=== PATIENT | female | born 1970 | race Caucasian/White ===

== ENCOUNTER 2016-09-24 11:57 | Inpatient (IN) | payer OTHER ==
--- NOTE | ~2016-09-24 | CO ---
Unit #: [id number] #: [id number] Patient: DELANEY CHRISTIANSON [id number] [address] [place], [place] [address] [id number] MR#: [id number] NAME: DELANEY CHRISTIANSON ROOM: 321 Age: 46 Sex: F Admission Date: 09/24/2016 : 1970 Attending Physician: Marcia Kelly M.D. Primary Care Physician: Jaya Monroe Jr., M.D. Consultation Date: 09/27/2016 CONSULTATION REPORT REASON FOR CONSULTATION Sepsis. HISTORY OF PRESENT ILLNESS This is a 46-year-old white female, who is currently fully awake, alert, and oriented to time, space, and person. Does not look sick at all. She was initially hospitalized 3 days earlier with acute confusional state and mental status changes. Her drug screen was positive for benzodiazepine. In the ER, she was thought to have UTI and was started on levofloxacin. Yesterday, she developed some tachycardia, low-grade fever and white count for which sepsis was suspected and vancomycin was added. ID was consulted for further evaluation. The patient is currently stable. She is wide awake and alert. Does not have any fever, chills, dysuria, frequency, urgency, cough, sputum production, abdominal pain, or mental status changes at all. She does not know why she became confused, it is quite possible that some drugs were involved, although I do not have any definitive history pointing towards the possibility. PAST MEDICAL HISTORY Hypertension, depression, anxiety, allergies, tobacco abuse, previous CVA. PAST SURGICAL HISTORY Tubal ligation, ectopic , and section. SOCIAL HISTORY She is . She smoke cigarettes. Denies alcohol or drug abuse. FAMILY HISTORY Negative. ALLERGIES Cephalosporin. HOME MEDICATIONS Singulair, lisinopril, potassium, Cymbalta, thiamine, Wellbutrin, Pepcid, losartan, melatonin, famotidine, folic acid, venlafaxine, vitamin D, Ativan, metoprolol, mirtazapine, Neurontin, trazodone, Coumadin, Vimpat. In the hospital, she is on vancomycin and Levaquin as far as antibiotics are concerned. SYSTEMIC REVIEW She is fully awake, alert, and oriented at this time and she was eating when I saw her. She has a little headache, focal neurologic symptoms, cough, sore throat, abdominal pain, dysuria, frequency, urgency, hematuria. Unit #: [id number] #: [id number] Patient: DELANEY CHRISTIANSON PHYSICAL EXAMINATION GENERAL: Reveals a young white female, who is awake and alert, in no acute distress. She is fully conscious and oriented to time, place, and person. VITAL SIGNS: Temperature is 97.3, heart rate is 90, respirations 18, blood pressure 130/70. HEENT: Unremarkable. LUNGS: Clear to percussion and auscultation. HEART: Sounds normal. There are no murmurs. ABDOMEN: Soft and nontender without organomegaly or ascites. Bowel sounds normal. NEUROLOGIC: Nonfocal. DIAGNOSTIC STUDIES LABORATORY RESULTS: Urine culture, gram-negative kaz identification is pending. Blood cultures 1out of 2 sets is positive for coag-negative Staph which is most likely a contaminant. White count on admission was 12.6, hemoglobin 11.8, platelets 295. Lactic acid 1.9. Sodium 138, potassium 3.4, chloride 103, CO2 of 28, BUN 17, creatinine 0.9. Liver function tests are normal. Urinalysis shows 50 to 100 wbc's, and 4+ bacteria, 2+ leukocyte esterase. Urine drug screen, benzodiazepine. Her white count today is 5.8. Lactic acid is 0.8. IMAGING STUDIES: Chest x-ray, negative. Head CT, no acute abnormality. There is an area of chronic encephalomalacia in the right cerebral hemisphere due to previous ischemic events. IMPRESSION Main issue appears to be confusion and mental status changes of unclear etiology, which has completely resolved. The patient does not appear septic, although she could have low-grade lower urinary tract infection or asymptomatic bacteriuria, but overt sepsis or SIRS is not evident on my physical examination and review of the case. RECOMMENDATIONS We will discontinue vancomycin as one of the two coag-negative Staph in the blood is most likely skin contaminant. We will continue Levaquin empirically for few days for possible urinary tract infection. Further recommendation will follow. Dictated by... Anu Granda/renetta TD: 09/30/2016 07:30 JOB #: [id number] Unit #: [id number] #: [id number] Patient: LISAEVERARDODELANEY G CONSULTATION REPORT Page 1 of 1 X Chapito Swift MD CONSULTATION REPORT
--- NOTE | ~2016-09-24 | CT71 ---
[facility] A Service of [facility] RADIOLOGY TEXT RESULTS PATIENT: DELANEY CHRISTIANSON LOCATION: C3A 321-01 : [birth year] UNIT #: [id number] AGE: [address]: Bobby Mcguire MD SEX: F ORDER DR: [id number] [facility] [address] [place], [place] [address] [id number] MR#: [id number] Acc #: [id number] NAME: DELANEY CHRISTIANSON : 1970 SEX: F STUDY DATE/TIME: 09/24/2016 13:22 UNIT: [facility] ROOM: STUDY DESCRIPTION: CT Head Wo Contrast Attending Physician: Obinna Palacio D.O. Ordering Physician: Obinna Palacio D.O. Primary Care Physician: Jaya Monroe Jr., M.D. MEDICAL IMAGING REPORT This report is preliminary unless electronic signature is present < HISTORY The history is altered mental status. Hypotensive. Increased confusion since yesterday. Best positioning possible patient in position. The CT exam was performed with one or more of the following radiation dose reduction techniques: automatic exposure control, adjustment of mA and/or kV according to patient size, and iterative reconstruction. CT head performed skull base through vertex without intravenous contrast. Comparison 07/03/2016. No acute brainstem abnormality. Cerebellum shows no acute abnormality. The cerebral hemispheres show stable chronic infarct right occipital lobe, stable chronic infarct posterior right parietal lobe, stable chronic infarct anterior right frontal lobe, stable chronic infarct anteromedial right frontal lobe. Associated encephalomalacic change in this regions. Outside of these areas the fu matter-white matter differentiation is intact. There are no findings of acute cortical ischemia. There is no hemorrhage. The midline structures are nondisplaced. The ventricles, cisterns and sulci show mild generalized enlargement greater on the right than the left secondary to ex vacuo change. No intra or extraaxial mass effect. There are cavernous carotid arterial calcifications. The intraorbital soft tissues are unremarkable. The visualized paranasal sinuses and mastoid air cells are clear. There is no fracture. IMPRESSION 1. No acute abnormality is seen in the brain. If the patient has ongoing neurologic symptoms, consider follow up imaging. 2. Areas of chronic encephalomalacic change in the right cerebral hemisphere as described above. These are felt to reflect multifocal prior ischemic infarcts and are unchanged from June 2016. [facility] A Service of [facility] RADIOLOGY TEXT RESULTS PATIENT: DELANEY CHRISTIANSON LOCATION: C3A 321-01 : [birth year] UNIT #: [id number] AGE: [address]: Bobby Mcguire MD SEX: F ORDER DR: 3. Mild generalized atrophy more pronounced in the right cerebral hemisphere secondary to ex vacuo change. 4. Vascular calcifications. Dictated by... Saurabh Lorenzo M.D. THIS IS AN ELECTRONICALLY VERIFIED REPORT Saurabh Lorenzo M.D. at 09/24/2016 10:37 PM Sharron TD: 09/24/2016 14:48 JOB #: [id number] MEDICAL IMAGING REPORT Page 1 of 1 COPY
--- NOTE | ~2016-09-24 | EKG ---
PATIENT: DELANEY CHRISTIANSON UNIT #: [id number] Ventricular Rate: 90 BPM Atrial Rate: 90 BPM P-R Interval: 202 ms QRS Duration: 106 ms Q-T Interval: 372 ms QTC Calculation(Bezet): 455 ms P [place]: 72 degrees Calculated R [place]: 45 degrees Calculated T [place]: 43 degrees Diagnosis Line: Normal sinus rhythm Diagnosis Line: Normal ECG Diagnosis Line: When compared with ECG of 24-SEP-2016 12:39, Diagnosis Line: (unconfirmed) Diagnosis Line: No significant change was found Diagnosis Line: Confirmed by ALEM RIOS MD ([id number]) on Diagnosis Line: 09/25/2016 10:38:35 AM INTERPRETING MD: BLANCA SORTO
--- NOTE | ~2016-09-24 | CR72 ---
[facility] A Service of [facility] RADIOLOGY TEXT RESULTS PATIENT: DELANEY CHRISTIANSON LOCATION: [facility] : [birth year] UNIT #: [id number] AGE: [address]: Obinna Palacio DO SEX: F ORDER DR: [id number] [facility] [address] [place], [place] [address] [id number] E MR#: [id number] Acc #: [id number] NAME: DELANEY CHRISTIANSON : 1970 SEX: F STUDY DATE/TIME: 09/24/2016 12:56 UNIT: [facility] ROOM: STUDY DESCRIPTION: CR Chest Single View Portable Attending Physician: Obinna Palacio D.O. Ordering Physician: Obinna Palacio D.O. Primary Care Physician: Jaya Monroe Jr., M.D. MEDICAL IMAGING REPORT This report is preliminary unless electronic signature is present EXAM Portable chest HISTORY Shortness of breath, weakness and hypotension, onset today. TECHNIQUE Single AP view of the chest was obtained and compared with 07/03/2016 FINDINGS A single AP portable view of the chest shows both lungs to be clear. The heart is normal in size. The mediastinal contour is normal. No significant bone abnormalities are seen. IMPRESSION Normal portable chest. Dictated by... Karlo Millan M.D. THIS IS AN ELECTRONICALLY VERIFIED REPORT Karlo Millan M.D. at 09/24/2016 4:42 PM RLF/chicar TD: 09/24/2016 13:31 JOB #: [id number] MEDICAL IMAGING REPORT Page 1 of 1 COPY
--- NOTE | ~2016-09-24 | HP ---
Unit #: [id number] #: [id number] Patient: DELANEY CHRISTIANSON [id number] [address] [place], [place] [address] [id number] MR#: [id number] NAME: DELANEY CHRISTIANSON ROOM: Age: 46 Sex: F Admission Date: 09/24/2016 : 1970 Attending Physician: Obinna Palacio D.O. Primary Care Physician: Jaya Monroe Jr., M.D. HISTORY AND PHYSICAL CHIEF COMPLAINT Mental status changes HISTORY OF PRESENT ILLNESS The patient is a 46-year-old female with a history depression, anxiety, who presents to [facility] Emergency Department with complaints of mental status changes. History is provided per emergency room physician as the patient is unable to provide me any history. She is very confused. Apparently the patient was brought in by her secondary to this confused behavior. Workup in the emergency department reveals a probable urinary tract infection. PAST MEDICAL HISTORY Gleaned from prior medical records. This includes: 1. Hypertension 2. Depression 3. Anxiety 4. Allergies 5. Tobacco abuse 6. Cerebrovascular accident 7. Atheroma PAST SURGICAL HISTORY Tubal ligation, history of ectopic status post surgery and a sections 2. SOCIAL HISTORY . There is a reported history of smoking. FAMILY HISTORY Unable to obtain. ALLERGIES Cephalosporin HOME MEDICATIONS List provided by EMS is 1. Singulair 2. Lisinopril 3. Potassium 4. Cymbalta 5. Thiamine 6. Wellbutrin 7. (1) Unit #: [id number] #: [id number] Patient: DELANEY CHRISTIANSON 8. Pepcid 9. [place] 10. Melatonin 11. Famotadine 12. Folic acid 13. Venlafaxine 14. Vitamin D 15. Ativan 16. Metoprolol 17. Mirtazapine 18. Neurontin 19. Trazodone 20. Coumadin 21. Vimpat REVIEW OF SYSTEMS Unable to obtain. PHYSICAL EXAMINATION VITAL SIGNS: Temperature 97.3, pulse 84, blood pressure 94/78. GENERAL: A 46-year-old female in no acute distress, appears stated age. HEENT: Pupils equally round. Extraocular movements are intact. Mucous membranes dry. NECK: Supple. No jugular venous distension. No lymphadenopathy. CARDIAC: Regular rate and rhythm. No murmurs, gallops or rubs. LUNGS: Clear to auscultation bilaterally. ABDOMEN: Nontender, nondistended. Positive bowel sounds. EXTREMITIES: No clubbing, cyanosis or edema. Warm and dry. PSYCHIATRIC: Alert and oriented x1. Affect is flat. NEUROLOGIC: Cranial nerves II through XII are intact grossly. The patient moves all extremities equal and with purpose. SKIN: No rashes, bruises, or ulcers. MUSCULOSKELETAL: No muscle or joint pain. No muscle or joint swelling. DIAGNOSIS DATA Laboratory: Potassium 3.4, otherwise chemistries are normal. INR is 4.4. White count 12.6. Toxicology screen positive for benzodiazepines. Urinalysis shows 2+ leukocyte esterase, 50-100 whites and 4+ bacteria with no squamous cells. Imaging: Chest x-ray is read as normal. ASSESSEMENT AND PLAN 1. Toxic metabolic encephalopathy, likely secondary to the patient's urinary tract infection. I have started the patient on Zosyn, given cephalosporin allergy. 2. Urinary tract infection. The patient has had Escherichia coli and enterococcal urinary tract infections this year. This also includes Vancomycin resistant Enterococcus. Zosyn covers both of those particular isolates. 3. Hypertension. Hold her home medications right now; her blood pressure is in the 90-100 systolic range. 4. Prophylaxis. The patient was started on Lovenox. Unit #: [id number] #: [id number] Patient: DELANEY CHRISTIANSON Dictated by Bobby Mcguire M.D. CAM/lillie TD: 09/24/2016 15:20 JOB #: [id number] HISTORY AND PHYSICAL Page 1 of 1 X Bobby Mcguire MD X HISTORY AND PHYSICAL
--- NOTE | ~2016-09-24 | DS ---
Unit #: [id number] #: [id number] Patient: ANITRA GREGORIO [id number] [address] [address] [id number] MR#: [id number] NAME: ANITRA GREGORIO. ROOM: 321 Age: 46 Sex: F Admission Date: 09/24/2016 : 1970 Discharge Date: 09/30/2016 Attending Physician: Marcia Kelly M.D. Primary Care Physician: Jaya Monroe Jr., M.D. DISCHARGE SUMMARY FINAL DIAGNOSES 1. Altered mental status and toxic metabolic encephalopathy which has resolved. 2. Escherichia coli urinary tract infection, on antibiotics. 3. History of cerebrovascular accident with left hemiparesis. 4. Diabetes mellitus, type 2. 5. Hypertension. 6. Seizure disorder. 7. Anticoagulation therapy. DISCHARGE MEDICATIONS Levaquin 500 mg p.o. daily for 3 more days. Continue rest of the home medications. DIAGNOSTIC STUDIES LABORATORY RESULTS: Lab workup upon discharge; PT 36.8, INR 3.4. WBC 8.4, hemoglobin 9.7, hematocrit 29.8, and platelet count of 293. Urine culture is Klebsiella oxytoca more than 100,000 colonies, sensitive to Levaquin. Sodium 143, potassium 3.7, chloride 109, BUN less than 5, creatinine 0.9. Blood culture, one of the cultures grew Staph species coag negative. This was skin contaminant. Lactic acid 0.8. Urine drug screen on admission showed positive for benzodiazepine. IMAGING STUDIES: CT scan of the head was done in the ER, which showed no acute abnormality seen, areas of chronic encephalomalacic changes in the right cerebellar hemisphere and multifocal ischemic infarct. HOSPITAL COURSE Ms. Anitra Gregorio is 46-year-old female, who was admitted to the hospital by Dr. Mcguire and later on changed to our services, was admitted with mental status changes. The patient was diagnosed with toxic metabolic encephalopathy, most likely secondary to the patient's urinary tract infection. The patient was started on antibiotics. Infectious Disease was consulted. The patient is doing much better at this time. She is being discharged home in stable condition. The patient is afebrile and has no leukocytosis. EXAMINATION ON DISCHARGE VITAL SIGNS: Blood pressure 123/75, respiratory rate 16, pulse is 73, temperature 98.2, oxygen saturation is 99%. CHEST: Fair air entry. CVS: S1 and S2 positive. Regular rhythm. Unit #: [id number] #: [id number] Patient: ANITRA GREGORIO DISCHARGE INSTRUCTIONS 1. The patient is being discharged home in stable condition. 2. Medication as per med rec. 3. Prescription for Levaquin has been written. 4. Follow up primary care provider in 1 week. 5. CBC and BMP in 1 week. Dictated by... Marcia Kelly M.D. GM/renetta TD: 10/04/2016 03:19 JOB #: [id number] DISCHARGE SUMMARY Page 1 of 1 X Marcia Kelly MD X DISCHARGE SUMMARY
--- NOTE | ~2016-09-24 | A ---
[facility] Nutrition Therapy DATE: 09/25/16 Patient: DELANEY CHRISTIANSON Physician: MORCAR Address: [address] Room/Bed: [address] [place] [address], Zip: [place] [address] Admit Date: 09/24/16 Date of : [birth year] Height: Weight: 128 58.3 NUTRITIONAL ASSESSMENT: REASON: 3 nutritional risk points re: 20# weight loss 46 y/o female admitted for change in mental status, ?UTI PMH: CVA, HTN, depression, anxiety, smoker Anthropometrics: ht: 5'8" wt: 128# (58 kg) BMI 19 Labs: K+ 3.4, Alb 3.4, Mg++ 1.3 Meds: coumadin, pepcid, lipitor, remeron, levaquin, ativan I/O & Bowel function: no data/2. BM 09/22 Skin Integrity: sore- BUE. No edema. Diet: Regular Assessment: Chart reviewed, events noted. Seeing pt for 3 nutritional risk points re: 20# weight loss. Pt's brought the pt to the ER yesterday 2' a change in mental status. The pt did suffer from a CVA in April 2016. RD internet network specialist spoke to pt at bedside. Pt reports that she has had no weight loss recently, contrary to the report of a 20# weight loss in [facility]. Pt confirmed current weight of 128# as her normal weight. No family in room to confirm. Pt says she has a good appetite and has been eating better. RD internet network specialist offered to order supplements for pt to ensure adequate intake, but pt refused. RD internet network specialist spoke with pt's RN, who also reports that the pt has been eating well and is able to swallow pills whole. Please consult RD if dietary needs for this pt change. Dx: Predicted unintentional weight loss r/t altered mental status, PMH AEB possible 20# weight loss noted in [facility]. Intervention: 1. Regular diet Monitoring, Evaluation and Goals: 1. Oral intake; consume/tolerate >50% of all meals 2. Weight; promote healthy weight maintenance 3. Labs; improve electroytes Monitor: -Daily intake [facility] Nutrition Therapy DATE: 09/25/16 Patient: DELANEY CHRISTIANSON Physician: MARCELLE Address: [address] Room/Bed: [address] [place] [address], Zip: [place] [address] Admit Date: 09/24/16 Date of : [birth year] Height: Weight: 128 58.3 -Swallowing/chewing difficulties -Weights Recommendations: 1. Continue regular diet and closely monitor pt's intake of each meal. Pt may have Ensure BID if desired. 2. Consult RD for further nutritional needs. RD will f/u per protocol as pt is at mild nutritional risk. Respectfully, MARKELL VANEGAS, pharmacist intern Chayo Lea, JEN, LD [employer] [facility] cc: client file
[~2016-09-24 11:57] MED LIST: ASPIRINEC PO; DULOXETINE HCL60 MG PO; FLEXERIL PO; IBUPROFEN PO; KCL PO; LISINOPRIL20 MG PO; LOVASTATIN20 M2 PO; ORTHO MICRONO0.35 MG PO; PEPCID40 MG PO; POTASSIUM CHLO10 MEQ PO; SINGULAIR PO; THIAMINE HCL100 M1 PO; VERTICALM25 MG PO; WELLBUTRIN PO; ZITHROMAX PO
[2016-09-24 13:15] LABS: BASOPHIL# 0.1 X10e3 (0-0.3); BASOPHIL% 0.4 % (0-2.5); EOSINOPHIL% 0.3 % (0.0-7.0); HEMOGLOBIN 11.8 gm/dL (12.0-16.0); LYMPHOCYTE# 2.5 X10e3 (1.0-3.5); LYMPHOCYTE% 19.7 % (17.0-45.0); MEAN CELL VOLUME 89.5 FL (83-96); MEAN CORPUSCULAR HEMOGLOBIN 28.5 PG (28-34); MEAN CORPUSCULAR HGB CONC 31.9 g/dL (30-36); MEAN PLATELET VOLUME 8.4 FL (6.5-11.5); MONOCYTE# 0.7 X10e3 (0-1.0); MONOCYTE% 5.7 % (3.0-12.0); NEUTROPHIL# 9.3 X10e3 (1.5-7.1); NEUTROPHIL% 73.9 % (40-75); PLATELET COUNT 295 X10e3 (140-420); RED BLOOD COUNT 4.13 X10e (3.90-5.30); RED CELL DISTRIBUTION WIDTH 14.7 % (11.0-15.5); WHITE BLOOD COUNT 12.6 X10e3 (4.0-10.5)
[2016-09-24 13:20] LABS: DIFF IND NO
[2016-09-24 13:31] LABS: INR 4.4; PARTIAL THROMBOPLASTIN TIME 52.5 SECONDS (23.5-31.3); PROTHROMBIN TIME (PATIENT) 47.8 SECONDS (10.0-11.7)
[2016-09-24 13:42] LABS: ACETAMINOPHEN <10 ug/mL; ALBUMIN SERUM 3.4 g/dL (3.5-5.0); ALCOHOL BLOOD <5 mg/dL ([, 0]); ALKALINE PHOSPHATASE 61 U/L (32-92); ALT (SGPT) 10 U/L (10-40); AST (SGOT) 12 U/L (10-42); BILIRUBIN, DIRECT 0.2 mg/dL (0.0-0.2); BILIRUBIN,INDIRECT 0.4 mg/dL (0.0-0.9); BILIRUBIN,TOTAL 0.6 mg/dL (0.2-2.0); BLOOD UREA NITROGEN 17 mg/dL (9-23); BUN/CREATININE RATIO 24.28; CALCIUM SERUM 9.8 mg/dL (8.4-10.2); CARBON DIOXIDE 28 mmol/L (22-31); CHLORIDE 103 mmol/L (100-111); CREATININE SERUM 0.7 mg/dL (0.6-1.4); GLOM FILT RATE Estimated 102.5 mL/min (>60); GLUCOSE FASTING 127 mg/dL (70-110); POTASSIUM 3.4 mmol/L (3.5-5.1); PROTEIN TOTAL SERUM 7.6 g/dL (6.0-8.3); SALICYLATE <4.0 mg/dL; SODIUM 138 mmol/L (135-145)
[2016-09-24 13:58] LABS: URINE SOURCE CLEAN CATCH
[2016-09-24 14:02] LABS: URINE APPEARANCE CLOUDY; URINE BILIRUBIN NEG (NEG); URINE BLOOD 1+ (NEG); URINE COLOR DK YELLOW; URINE GLUCOSE NEG (NEG); URINE KETONE NEG (NEG); URINE LEUKOCYTE ESTERASE 2+ (NEG); URINE NITRATE POS (NEG); URINE PH 5.5 (5-8); URINE PROTEIN TRACE (NEG); URINE SPECIFIC GRAVITY 1.021 (1.003-1.035)
[2016-09-24 14:10] LABS: CULTURE INDICATED? YES; URBCS1 AUWI 0-2 /[HPF] (0-2); URINE BACTERIA AUWI 4+ (NEGATIVE); URINE SQUAMOUS EPITHELIAL CELL NONE SEEN /[HPF]; UWBCS1 AUWI 50-100 (0-5)
[2016-09-24 14:16] LABS: U HYALINE CASTS AUWI 0-2 /[LPF]
[2016-09-24] MEDS ORDERED: TYLENOL325 M1 PO ×2 (14:18→15:16)
[2016-09-24] MEDS ORDERED: ZOLOFT50 MG PO (14:19)
[2016-09-24] MEDS ORDERED: ZOFRAN PO (14:19)
[2016-09-24] MEDS ORDERED: REMERON PO ×2 (14:19→15:16)
[2016-09-24] MEDS ORDERED: SPECTAZOLE15 GM TOP (14:20)
[2016-09-24] MEDS ORDERED: LOPRESSOR PO ×2 (14:20→15:15)
[2016-09-24] MEDS ORDERED: LORAZEPAM1 MG PO (14:20)
[2016-09-24] MEDS ORDERED: ALTOPREV40 MG PO ×2 (14:20→15:17)
[2016-09-24] MEDS ORDERED: PROTONIX PO (14:21)
[2016-09-24] MEDS ORDERED: ULTRAM PO (14:21)
[2016-09-24] MEDS ORDERED: FOLIC ACID1 MG PO ×2 (14:21→15:17)
[2016-09-24] MEDS ORDERED: SINGULAIR PO ×2 (14:21→15:16)
[2016-09-24] MEDS ORDERED: LISINOPRIL PO ×2 (14:21→15:14)
[2016-09-24] MEDS ORDERED: VIMPAT100 MG PO ×2 (14:22→15:14)
[2016-09-24] MEDS ORDERED: THIAMINE HCL100 M1 PO ×2 (14:22→15:18)
[2016-09-24 14:41] LABS: AMPHETAMINE NEG (NEG); BARBITURATES NEG (NEG); BENZODIAZEPINES POS (NEG); COCAINE NEG (NEG); MARIJUANA NEG (NEG); OPIATES NEG (NEG); TRICYCLIC ANTIDEPRESSANTS NEG (NEG); U METHADONE NEG (NEG)
[2016-09-24] MEDS ORDERED: ACID REDUCER20 MG PO (15:14)
[2016-09-24] MEDS ORDERED: NEURONTIN100 MG PO (15:14)
[2016-09-24] MEDS ORDERED: PATIENT'S PHARMACY (15:14)
[2016-09-24] MEDS ORDERED: KCL PO (15:15)
[2016-09-24] MEDS ORDERED: ATIVAN PO (15:15)
[2016-09-24] MEDS ORDERED: DESYREL50 MG PO (15:15)
[2016-09-24] MEDS ORDERED: SENNA8.6 M1 PO (15:15)
[2016-09-24] MEDS ORDERED: EFFEXOR PO (15:15)
[2016-09-24] MEDS ORDERED: VITAMIN D250000 UNIT PO (15:16)
[2016-09-24] MEDS ORDERED: COUMADIN PO (15:17)
[2016-09-24] MEDS ORDERED: RISPERIDONE PO (15:18)
[2016-09-25 09:16] LABS: HEMATOCRIT 32.6 % (35.0-45.0); HEMOGLOBIN 10.6 gm/dL (12.0-16.0); MEAN CELL VOLUME 88.9 FL (83-96); MEAN CORPUSCULAR HEMOGLOBIN 28.9 PG (28-34); MEAN CORPUSCULAR HGB CONC 32.5 g/dL (30-36); MEAN PLATELET VOLUME 7.6 FL (6.5-11.5); RED BLOOD COUNT 3.67 X10e (3.90-5.30); RED CELL DISTRIBUTION WIDTH 14.6 % (11.0-15.5); WHITE BLOOD COUNT 7.8 X10e3 (4.0-10.5)
[2016-09-25 09:44] LABS: BUN/CREATININE RATIO 23.33; CALCIUM SERUM 8.8 mg/dL (8.4-10.2); CREATININE SERUM 0.6 mg/dL (0.6-1.4); GLOM FILT RATE Estimated 107.8 mL/min (>60); POTASSIUM 3.4 mmol/L (3.5-5.1)
[2016-09-25 20:04] LABS: INR 3.7; PROTHROMBIN TIME (PATIENT) 39.8 SECONDS (10.0-11.7)
[2016-09-26 05:20] LABS: HEMATOCRIT 29.4 % (35.0-45.0); HEMOGLOBIN 9.5 gm/dL (12.0-16.0); MEAN CELL VOLUME 90.4 FL (83-96); MEAN CORPUSCULAR HEMOGLOBIN 29.3 PG (28-34); MEAN CORPUSCULAR HGB CONC 32.4 g/dL (30-36); MEAN PLATELET VOLUME 8.2 FL (6.5-11.5); RED BLOOD COUNT 3.25 X10e (3.90-5.30); RED CELL DISTRIBUTION WIDTH 14.2 % (11.0-15.5); WHITE BLOOD COUNT 5.8 X10e3 (4.0-10.5)
[2016-09-26 06:05] LABS: INR 2.6; PROTHROMBIN TIME (PATIENT) 28.6 SECONDS (10.0-11.7)
[2016-09-26 07:04] LABS: BUN/CREATININE RATIO 14.28; CALCIUM SERUM 8.6 mg/dL (8.4-10.2); CREATININE SERUM 0.7 mg/dL (0.6-1.4); GLOM FILT RATE Estimated 102.5 mL/min (>60); MAGNESIUM 1.5 mg/dL (1.6-3.0); POTASSIUM 3.8 mmol/L (3.5-5.1)
[2016-09-27 05:12] LABS: HEMATOCRIT 26.6 % (35.0-45.0); HEMOGLOBIN 8.7 gm/dL (12.0-16.0); MEAN CELL VOLUME 89.9 FL (83-96); MEAN CORPUSCULAR HEMOGLOBIN 29.4 PG (28-34); MEAN CORPUSCULAR HGB CONC 32.7 g/dL (30-36); MEAN PLATELET VOLUME 7.7 FL (6.5-11.5); RED BLOOD COUNT 2.95 X10e (3.90-5.30); RED CELL DISTRIBUTION WIDTH 14.5 % (11.0-15.5); WHITE BLOOD COUNT 5.8 X10e3 (4.0-10.5)
[2016-09-27 05:24] LABS: INR 1.7; PROTHROMBIN TIME (PATIENT) 18.4 SECONDS (10.0-11.7)
[2016-09-27 06:10] LABS: BLOOD UREA NITROGEN 5 mg/dL (9-23); BUN/CREATININE RATIO 7.14; CALCIUM SERUM 8.4 mg/dL (8.4-10.2); CARBON DIOXIDE 23 mmol/L (22-31); CHLORIDE 112 mmol/L (100-111); CREATININE SERUM 0.7 mg/dL (0.6-1.4); GLOM FILT RATE Estimated 102.5 mL/min (>60); GLUCOSE FASTING 71 mg/dL (70-110); SODIUM 141 mmol/L (135-145)
[2016-09-27 06:22] LABS: PROCALCITONIN <0.05 NG/ML
[2016-09-28 07:06] LABS: INR 1.5; PROTHROMBIN TIME (PATIENT) 16.8 SECONDS (10.0-11.7)
[2016-09-29 06:32] LABS: INR 3.1; PROTHROMBIN TIME (PATIENT) 34.2 SECONDS (10.0-11.7)
[2016-09-29 06:44] LABS: BLOOD UREA NITROGEN <5 mg/dL (9-23); BUN/CREATININE RATIO 5.55; CALCIUM SERUM 8.9 mg/dL (8.4-10.2); CARBON DIOXIDE 27 mmol/L (22-31); CHLORIDE 109 mmol/L (100-111); CREATININE SERUM 0.9 mg/dL (0.6-1.4); GLOM FILT RATE Estimated 75.7 mL/min (>60); GLUCOSE FASTING 75 mg/dL (70-110); POTASSIUM 3.7 mmol/L (3.5-5.1); SODIUM 143 mmol/L (135-145)
[2016-09-30 05:23] LABS: HEMATOCRIT 29.8 % (35.0-45.0); HEMOGLOBIN 9.7 gm/dL (12.0-16.0); MEAN CELL VOLUME 88.7 FL (83-96); MEAN CORPUSCULAR HEMOGLOBIN 28.9 PG (28-34); MEAN CORPUSCULAR HGB CONC 32.6 g/dL (30-36); MEAN PLATELET VOLUME 6.8 FL (6.5-11.5); RED BLOOD COUNT 3.36 X10e (3.90-5.30); RED CELL DISTRIBUTION WIDTH 14.1 % (11.0-15.5); WHITE BLOOD COUNT 8.4 X10e3 (4.0-10.5)
[2016-09-30 05:43] LABS: INR 3.4; PROTHROMBIN TIME (PATIENT) 36.8 SECONDS (10.0-11.7)
[2016-09-30] MEDS ORDERED: KCL PO (18:10)
[2016-09-30] MEDS ORDERED: (NONE)1 CA1 PO (18:13)
[2016-09-30] MEDS ORDERED: LEVAQUIN PO (18:17)
== END 2016-09-30 19:23 | disposition home or self-care (01) | DRG 689 ==
LOC: CED 11:57 → C3A PCU 15:11 → CEDOF 15:11 → CED 15:38 → CEDOF 18:25 → C3A PCU 18:25
PROVIDERS: Emergency Medicine; Hospitalist; Internal Medicine; Physician Assistant Medical
DX: N39.0 Urinary tract infection, site not specified (principal); G92 Toxic encephalopathy; I69.354 Hemiplegia and hemiparesis following cerebral infarction affecting left non-dominant side; E44.1 Mild protein-calorie malnutrition; B96.20 Unspecified Escherichia coli [E. coli] as the cause of diseases classified elsewhere; I10 Essential (primary) hypertension; E11.9 Type 2 diabetes mellitus without complications; F32.9 Major depressive disorder, single episode, unspecified; Z68.1 Body mass index [BMI] 19.9 or less, adult; Z87.891 Personal history of nicotine dependence; G40.909 Epilepsy, unspecified, not intractable, without status epilepticus; F41.9 Anxiety disorder, unspecified; Z98.51 Tubal ligation status; Z88.1 Allergy status to other antibiotic agents
CPT/HCPCS: 36415; 51701; 70450; 71010; 80048; 80076; 80202; 80307; 81003; 82140; 82308; 82947; 83605; 83735; 84132; 84703; 85025; 85027; 85610; 85730; 87040; 87086; 87088; 87186; 93005; 97163; 97167; 99285; G0480; G8978-GP; G8979-GP; G8980-GP; G8987-GO; G8988-GO; G8989-GO; J1650; J1956; J3370; J3475

== ENCOUNTER 2016-10-22 17:32 | Inpatient (IN) | payer OTHER ==
[~2016-10-22] VITALS: Ht 162.6 cm; Wt 57.6 kg
--- NOTE | ~2016-10-22 | CO ---
Unit #: [id number] #: [id number] Patient: ANITRA GREGORIO [id number] [facility] [address] [place], [place] [address] [id number] I MR#: [id number] NAME: ANITRA GREGORIO ROOM: 229 Age: 46 Sex: F Admission Date: 10/22/2016 : 1970 Attending Physician: Marcia Kelly M.D. Primary Care Physician: Jaya Monroe Jr., M.D. Consultation Date: 10/27/2016 CONSULTATION REPORT REASON FOR CONSULTATION Followup. DISCUSSION Ms. Anitra Gregorio is a 46-year-old white female seen in room 229, bed 1 on 10/26 at [facility]. The patient reported that she was having trouble sleeping, still problems with anxiety. The patient currently is on antibiotic. The patient's vital signs - 98.2/64/18. Blood pressure 88/64, oxygen saturation 100%. The patient is still having problems with hypotension. Still reporting feeling sad, depressed, anxious. No suicidal ideation. REVIEW OF SYSTEMS A complete review of systems is unremarkable. MENTAL STATUS EXAMINATION General appearance - Patient is dressed casually, lying comfortably in bed. Attention span, concentration - Fair. Speech - Low in volume and rate. Oriented to time, place and person. Mood and affect - Sad, dysphoric. Flat. Thought process - Circumstantial. Thought content - Guarded, somewhat paranoid, but denied any suicidal or homicidal ideation. Recent and remote memory - Fair. Language - Intact. Fund of knowledge - Fair. Insight and judgment - Fair to slightly impaired. DIAGNOSIS PSYCHIATRIC DIAGNOSES: Major depressive disorder, recurrent, severe - F33.2; anxiety disorder, NOS, F40.01. SECONDARY DIAGNOSIS: Deferred. MEDICAL DIAGNOSES: Diabetes mellitus type 2, seizure disorder, history of atheroma - on anticoagulation therapy, history of CVA. STRESSORS: Psychosocial stressors. ASSESSMENT AND PLAN 1. Supportive psychotherapy and psychoeducation provided to the patient. 2. Educated about benefits and side effects of medication and course and prognosis of illness. 3. Advised to continue with the current combination of medication and make further adjustment of medications if needed. We will continue to follow. Please feel free to call with any questions, telephone number . Unit #: [id number] #: [id number] Patient: ANITRA GREGORIO Dictated by... Anu Jain/sheba TD: 10/27/2016 13:40 JOB #: [id number] CONSULTATION REPORT Page 1 of 1 X Calvin Bruno MD X CONSULTATION REPORT
--- NOTE | ~2016-10-22 | DS ---
Unit #: [id number] #: [id number] Patient: ANITRA GREGORIO [id number] [address] [address] [id number] I MR#: [id number] NAME: ANITRA GREGORIO. ROOM: 229 Age: 46 Sex: F Admission Date: 10/22/2016 : 1970 Discharge Date: 10/28/2016 Attending Physician: Marcia Kelly M.D. Referring Physician: Jaya Monroe Jr., M.D. Primary Care Physician: Jaya Monroe Jr., M.D. DISCHARGE SUMMARY FINAL DIAGNOSES 1. Hypotension, which has improved. 2. Acute kidney injury, which has resolved. 3. Urinary tract infection with urine culture positive for vancomycin resistant enterococcus faecium, more than 100,000 colony. 4. Anemia, which is chronic. 5. History of cerebrovascular accident with left hemiparesis. 6. Diabetes mellitus type 2. 7. Seizure disorder. 8. Depression disorder. 9. History of atheroma on anticoagulation therapy. 10. History of tobacco abuse. 11. History of anxiety. DISCHARGE MEDICATIONS 1. Zyvox 600 mg b.i.d. for seven days. 2. ProAmatine 10 mg 3 times a day. 3. Lovastatin 40 mg q.h.s. 4. Senna 8.6 mg daily. 5. Lopressor 12.5 mg b.i.d. 6. Risperdal 1 mg q.h.s. 7. Ativan 1 mg q.8 p.r.n. 8. Effexor XR 150 mg daily. 9. Desyrel 50 mg q.h.s. 10. Remeron 15 mg at bedtime. 11. Vimpat 100 mg twice a day. 12. Neurontin 100 mg 3 times a day. 13. Coumadin 1 mg daily. 14. Lovenox 40 mg subcu daily. 15. Discontinue Lovenox once INR is 2.0. 16. Tylenol 650 q.4 p.r.n. 17. Pepcid 40 mg daily. 18. Singulair 10 mg daily. 19. Potassium 10 mEq daily. 20. Folic acid 1 mg daily. 21. Thiamine 100 mg daily. 22. Vitamin D 50,000 units weekly. DIAGNOSTIC STUDIES LABORATORY WORKUP: On discharge glucose is 90, PT and INR is 16.1 and 1.5. BMP shows sodium 141, potassium 3.9, chloride 110, BUN 10, creatinine 0.9. CBC shows WBC 9.2, hemoglobin 9.3, hematocrit 28.5 and platelet count of 237. Blood culture x2 no growth. Unit #: [id number] #: [id number] Patient: ANITRA GREGORIO HEALTH INFORMATICS ADVISOR DURING HOSPITALIZATION Dr. Calvin Burno from psychiatry services. HOSPITAL COURSE Ms. Anitra Gregorio is a 46-year-old female who has had multiple medical problems including left hemiparesis and seizure disorder, was brought to ER by her because of confusion and low blood pressure. Patient was seen by Dr. Steinberg at home, because of low blood pressure and was sent to ER. The patient was admitted to med/surg unit at [facility] and was found to have urinary tract infection. The patient was treated with IV antibiotics and later on changed to Zyvox because the patient has VRE. She is doing much better at this time. Patient's blood pressure was low and has been started on ProAmatine, seems to be stable. Patient will be discharged to rehab for continuation of care and physical therapy. Patient's home medications were continued during hospitalization. Patient's INR is 1.5. Patient is on Lovenox. We need to continue Lovenox. Still her INR is 2.0. Patient will be discharged on Lovenox. EXAMINATION ON DISCHARGE Patient is sitting in the chair. Blood pressure is 100/75, respiratory rate 16, pulse is 66, temperature 98.3. Oxygen saturation is 97%. Head is normocephalic. Chest has fair air entry. CVS is regular rhythm. DISCHARGE INSTRUCTIONS 1. Patient will be discharged to rehab facility in stable condition. 2. Medication as per med rec. 3. CBC and BMP to be done in three to four days. 4. PT and OT at rehab facility. 5. Discontinue Lovenox once INR is 2.0. 1. Dictated by... Marcia Kelly M.D. Luis TD: 10/28/2016 09:49 JOB #: [id number] DISCHARGE SUMMARY Page 1 of 1 X Marcia Kelly MD SUMMARY
--- NOTE | ~2016-10-22 | CO ---
Unit #: [id number] #: [id number] Patient: ANITRA GREGORIO [id number] [address] [place], [place] [address] [id number] I MR#: [id number] NAME: ANITRA GREGORIO ROOM: 229 Age: 46 Sex: F Admission Date: 10/22/2016 : 1970 Attending Physician: Marcia Kelly M.D. Primary Care Physician: Jaya Monroe Jr., M.D. Consultation Date: 10/25/2016 CONSULTATION REPORT REASON FOR CONSULTATION Followup. DISCUSSION Ms. Anitra Gregorio is a 46-year-old female, seen in room 229, bed 1 on 10/25/2016. The patient reported still having problem with sleep and anxiety, but medication is helping her. Denied any suicidal or homicidal ideation. Denied any psychotic symptom. The patient denied any side effects from medication. The patient's vital signs; temperature 98.4, heart rate 80, respirations 16, blood pressure 85/44, and oxygen saturation 100%. REVIEW OF SYSTEMS Complete review of system is unremarkable. MENTAL STATUS EXAMINATION General appearance; the patient dressed casually, lying comfortably in bed. Attention span and concentration, fair. Speech, regular rate and coherent. Oriented in time, place, and person. Mood and affect; sad, dysphoric, anxious. Thought process, coherent. Thought content, the patient denied any thoughts of harming self or others or any psychotic symptom, but still having symptoms of depression and anxiety. Recent and remote memory, fair. Language, intact. Fund of knowledge, fair. Insight and judgment, fair to slightly impaired. DIAGNOSES 1. Major depressive disorder, recurrent, severe, F33.2. 2. Anxiety disorder, not otherwise specified, F40.01. ASSESSMENT/PLAN 1. Supportive psychotherapy and psychoeducation provided to the patient. 2. Educated about benefits and side effects of medication and course and prognosis of illness. 3. Advised to continue with current medication. If needed, consider further adjustment of medication. Please feel free to call if any questions, telephone #[phone]. Dictated by... Calvin Bruno M.D. PATI/renetta TD: 10/26/2016 22:57 Unit #: [id number] #: [id number] Patient: ANITRA GREGORIO JOB #: [id number] CONSULTATION REPORT Page 1 of 1 X Calvin Bruno MD CONSULTATION REPORT
--- NOTE | ~2016-10-22 | EKG ---
PATIENT: DELANEY CHRISTIANSON UNIT #: [id number] Ventricular Rate: 84 BPM Atrial Rate: 84 BPM P-R Interval: 214 ms QRS Duration: 102 ms Q-T Interval: 422 ms QTC Calculation(Bezet): 498 ms P [place]: 84 degrees Calculated R [place]: 67 degrees Calculated T [place]: 64 degrees Diagnosis Line: Sinus rhythm with 1st degree A-V block Diagnosis Line: Prolonged QT Diagnosis Line: Abnormal ECG Diagnosis Line: No previous ECGs available Diagnosis Line: Confirmed by LAUREN SMALLWOOD MD ([id number]) on 10/23/2016 Diagnosis Line: 7:13:24 PM INTERPRETING MD: CL SORTO
--- NOTE | ~2016-10-22 | HP ---
Unit #: [id number] #: [id number] Patient: DELANEY CHRISTIANSON [id number] [address] [place], [place] [address] [id number] I MR#: [id number] NAME: DELANEY CHRISTIANSON. ROOM: 229 Age: 46 Sex: F Admission Date: 10/22/2016 : 1970 Attending Physician: Marcia Kelly M.D. Referring Physician: Jaya Monroe Jr., M.D. Primary Care Physician: Jaay Monroe Jr., M.D. HISTORY AND PHYSICAL CHIEF COMPLAINT Hypotension and mental status changes. HISTORY OF PRESENT ILLNESS 46-year-old female who has had CT with left hemiparesis and has history of seizure disorder, is not able to give much history, although she is awake and alert and is tying to eat. Patient seems to be still confused, although she is pretty awake. I think this is her normal mental status. Patient was last discharged from the hospital on 09/30/2016. Patient was seen by Anu at home and was found to have low blood pressure. Patient was advised to come to ER. Patient was seen in ER and was found to have low blood pressure and also UTI. Patient is being admitted for UTI with hypotension. There is no history of fever, chills, or rigors. No history of chest pain or abdominal pain, or nausea and vomiting, as well as I can tell. PAST MEDICAL HISTORY 1. 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 2. Hypertension 3. Diabetes mellitus type 2. 4. Seizure disorder. 5. History of atheroma on anticoagulation therapy. 6. History of tobacco abuse. 7. History of depression/anxiety. PAST SURGICAL HISTORY Patient has had tubal ligation, history of ectopic status post surgery and a sections 2. SOCIAL HISTORY Patient is . She lives with her . She has a history of smoking. She has a . She has a past history of smoking. No alcohol abuse or drug abuse. FAMILY HISTORY Unable to obtain. ALLERGIES Patient is allergic to cephalosporin. REVIEW OF SYMPTOMS Unable to obtain. Unit #: [id number] #: [id number] Patient: MANOR,DELANEY G HOME MEDICATIONS 1. Zestril 10 mg daily. 2. Vimpat 200 mg twice a day. 3. Famotidine 40 mg daily. 4. Neurontin 100 mg 3 times a day. 5. Lopressor 12.5 mg 3 times a day. 6. Remeron 15 mg at bedtime. 7. Singulair 10 mg daily. 8. Vitamin D 250,000 units weekly. 9. Tylenol 650 q.4 p.r.n. 10. Folic acid 1 mg daily. 11. Lovastatin 40 mg daily. 12. Coumadin 1 mg daily. 13. Risperdal 0.5 mg at bedtime. 14. Thiamine 100 mg daily. 15. Bactrim DS twice a day. PHYSICAL EXAMINATION GENERAL: The patient is being evaluated in 229. She is sitting upright, awake, alert, and eating her breakfast, does not seem to be in any respiratory distress. She does communicate but not really making much sense. She does not remember her children's phone number. Patient's 's phone number is in the chart and we are trying to contact but is not taking any incoming call at this time. We will continue to try to get full history. VITAL SIGNS: Blood pressure is 96/69, respiratory rate 18, pulse 71, temperature is 97.0, oxygen saturation is 98%. It is normocephalic. NECK: Supple. CHEST: Fair air entry. No additional sounds. CVS: S1 and S2 positive. Regular rhythm. ABDOMEN: Soft, no tenderness. EXTREMITIES: Negative edema. JUNIOR BRAND MANAGER: Patient is awake, alert and oriented x1. Neuro exam was limited. DIAGNOSTIC STUDIES LABORATORY STUDIES: WBC 10.3, hemoglobin 12.1, hematocrit 38.0, and platelet count of 374. Sodium 143, potassium 4.8, chloride 104, BUN 30, creatinine 1.6. Lactic acid 1.0. Urinalysis shows 2+ bacteria. PT and INR is 3.6. IMAGING STUDIES: CT scan of the head shows no acute abnormality seen in the brain. No change in appearance compared to 09/24/2016. Patient does have area of chronic encephalomalacic changes, multifocal in the right cerebral hemisphere involving temporal, occipital, frontal, and parietal lobes. ASSESSMENT AND PLAN Patient is being admitted to med/surg with: 1. Hypotension. 2. Acute renal failure, most likely secondary to dehydration. 3. Urinary tract infection. 4. History of cerebrovascular accident with left hemiparesis. 5. Diabetes mellitus type 2. 6. Hypertension. 7. History of seizure disorder. 8. History of atheroma on anticoagulation therapy, INR is 3.6. We will hold Coumadin at this time. 9. Mental status changes, which seems like it has resolved. Unit #: [id number] #: [id number] Patient: DELANEY CHRISTIANSON PLAN 1. Admit to med/surg. 2. IV Levaquin 750 mg daily is being started. 3. IV fluids, normal saline 800 mg an hour is being started. 4. Urine culture has been done and blood culture has been done, which is still pending. 5. Accu-Cheks a.c. and h.s. with insulin sliding scale ordered per protocol. 6. Continue home medications, which have been reviewed. 7. We will continue to try to contact patient's . Dictated by Anu Garcia/john TD: 10/23/2016 10:03 JOB #: [id number] HISTORY AND PHYSICAL Page 1 of 1 X Marcia Kelly MD X HISTORY AND PHYSICAL
--- NOTE | ~2016-10-22 | CO ---
Unit #: [id number] #: [id number] Patient: ANITRA GREGORIO [id number] [address] [place], [place] [address] [id number] I MR#: [id number] NAME: ANITRA GREGORIO ROOM: 229 Age: 46 Sex: F Admission Date: 10/22/2016 : 1970 Attending Physician: Marcia Kelly M.D. Primary Care Physician: Jaya Monroe Jr., M.D. Consultation Date: 10/26/2016 CONSULTATION REPORT REASON FOR CONSULTATION Followup. DISCUSSION Ms. Anitra Gregorio is a 46-year-old white female seen in room 229, bed 1 on 10/26/2016. Patient dressed in hospital attire, lying comfortably in bed, seems somewhat anxious/nervous. Reported continues to have problems with anxiety, nervous, depression, mood lability, compliant with medications. The patient denied any suicidal or homicidal ideation. Patient currently on Zyvox. Also, taking Remeron, Desyrel, Neurontin. Patient's vital signs are 98.2, 63, 16, 114/86, oxygen saturation 94%. MENTAL STATUS EXAMINATION General appearance: Patient dressed casually, lying comfortably in bed, seems somewhat anxious, nervous, restless. Reported having problems with anxiety. Attention span and concentration fair. Speech: Regular rate, coherent. Oriented in time, place, and person. Mood and affect sad, dysphoric. Thought process is coherent. Thought content: Patient denied any thoughts of harming self or others. Denied any psychotic symptoms. Recent and remote memory fair. Language intact. Fund of knowledge fair. Insight and judgment fair to slightly impaired. DIAGNOSES PSYCHIATRIC: Major depressive disorder, recurrent, severe, F33.2. Anxiety disorder, not otherwise specified, F40.01. ASSESSMENT AND PLAN 1. Supportive psychotherapy and psychoeducation provided to patient. 2. Educated about benefits and side effects of medication and course and prognosis of illness. 3. Advised to continue with the current combination of medication. If needed, consider further adjustment of medication. We will continue to follow. Please feel free to call if any questions, . Dictated by... Calvin Bruno M.D. PATI/jennifer TD: 10/27/2016 15:17 JOB #: [id number] Unit #: [id number] #: [id number] Patient: ANITRA GREGORIO CONSULTATION REPORT Page 1 of 1 X Calvin Bruno MD CONSULTATION REPORT
--- NOTE | ~2016-10-22 | CR71 ---
[facility] A Service of [facility] RADIOLOGY TEXT RESULTS PATIENT: ANITRA CHRISTIANSON LOCATION: A 229-01 : [birth year] UNIT #: [id number] AGE: [address]: Marcia Kelly MD SEX: F ORDER DR: [id number] [facility] [address] [facility]. [place], [place] [address] [id number] I MR#: [id number] Acc #: [id number] NAME: ANITRA CHRISTIANSON : 1970 SEX: F STUDY DATE/TIME: 10/22/2016 18:31 UNIT: A ROOM: 229 STUDY DESCRIPTION: CR Chest Single View Attending Physician: Marcia Kelly M.D. Referring Physician: Jaya Monroe Jr., M.D. Ordering Physician: Anitra Aguilar M.D. Primary Care Physician: Jaya Monroe Jr., M.D. MEDICAL IMAGING REPORT This report is preliminary unless electronic signature is present EXAM Chest portable, 10/22/2016 18:31 hours HISTORY 46-year-old with hypotension, shortness of air with activity and altered mental status today. History of diabetes. COMPARISON 09/24/2016 FINDINGS Portable upright chest demonstrates normal cardiac, mediastinal and hilar contours. The lung volumes are low but the lungs are clear. There is no effusion or pneumothorax. 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 IMPRESSION Low lung volumes with no acute cardiopulmonary findings. No change from 09/24/2016. Dictated by... Polly Wills M.D. THIS IS AN ELECTRONICALLY VERIFIED REPORT Polly Wills M.D. at 10/23/2016 9:08 AM Kwaku TD: 10/23/2016 08:24 JOB #: [id number] MEDICAL IMAGING REPORT Page 1 of 1 COPY
--- NOTE | ~2016-10-22 | CO ---
Unit #: [id number] #: [id number] Patient: ANITRA GREGORIO [id number] [facility] [address] [facility]. [place], [place] [address] [id number] I MR#: [id number] NAME: ANITRA GREGORIO ROOM: 229 Age: 46 Sex: F Admission Date: 10/22/2016 : 1970 Attending Physician: Marcia Kelly M.D. Primary Care Physician: Jaya Monroe Jr., M.D. Consultation Date: 10/24/2016 CONSULTATION REPORT REASON FOR CONSULTATION Anxiety, depression, hallucination. HISTORY OF PRESENT ILLNESS Ms. Anitra Gregorio is a 46-year-old female seen in room 229, bed 1, on 10/24/2016 at [facility]. The patient was lying comfortably and dressed casually. The patient reports that she was having hallucination this morning, seeing things, seeing spiders. The patient reported history of depression and anxiety, currently on medication. The patient currently denied any suicidal or homicidal ideation, but is still having visual hallucination. Reports taking medication, helping some. The patient denied any auditory hallucination or any suicidal or homicidal ideation. The patient's vital signs, temperature 97.4, pulse 79, respirations 16, blood pressure 110/64, and oxygen saturation 100%. The patient denied any use of any drugs or alcohol. PAST PSYCHIATRIC HISTORY Remarkable for history of depression and anxiety. Last seen in 03/2016. No known history of any suicide attempt or any inpatient treatment. FAMILY HISTORY AND SOCIAL HISTORY The patient has a good support system from . No history of abuse. No history of any substance abuse. PAST MEDICAL HISTORY Remarkable for history of hypertension, seasonal allergies, left-sided cerebrovascular accident, status post tPA, urinary tract infection, sepsis, supraventricular tachycardia, leukocytosis. MEDICATION HISTORY The patient is on NovoLog, Levaquin, Risperdal, Lipitor, Neurontin, Remeron, Desyrel. REVIEW OF SYSTEMS Complete review of systems is unremarkable except as mentioned above. MENTAL STATUS EXAMINATION Vital signs; temperature 97.4, pulse 79, respirations 16, blood pressure 110/64, and oxygen saturation 100%. General appearance; the patient dressed casually, lying comfortably in bed, dressed in hospital attire. Made good eye contact, compliant, cooperative. Attention span and concentration; fair. Speech; regular rate and coherent. Oriented in time, place, and person. Mood and affect; sad, dysphoric, flat, anxious. Thought process; coherent. Thought content; the patient denied any Unit #: [id number] #: [id number] Patient: ANITRA GREGORIO thoughts of harming self or others, but somewhat guarded. Recent and remote memory, fair. Language, intact. Fund of knowledge, fair. Insight and judgment, fair to slightly impaired. DIAGNOSES Psychiatric: Major depressive disorder, recurrent, severe, F33.2; psychosis, not otherwise specified, F49.0; agoraphobia with panic disorder, F40.01. Secondary diagnosis: Deferred. Medical diagnosis: Please refer to H and P. Stressors: Psychosocial stressors. ASSESSMENT/PLAN 1. Supportive psychotherapy and psychoeducation were provided to the patient. 2. Educated about benefits and side effects of medication and course and prognosis of illness. 3. Advised to continue with current medication with a plan to increase Risperdal to 1 mg at bedtime. If needed, we will make further adjustment of medication. Please feel free to call if any questions. Telephone number is [phone]. Dictated by... Calvin Bruno M.D. PATI/renetta TD: 10/27/2016 00:49 JOB #: [id number] CONSULTATION REPORT Page 1 of 1 X Calvin Bruno MD X CONSULTATION REPORT
--- NOTE | ~2016-10-22 | CO ---
Unit #: [id number] #: [id number] Patient: ANITRA GREGORIO [id number] [address] [facility]. [place], [place] [address] [id number] I MR#: [id number] NAME: ANITRA GREGORIO ROOM: 229 Age: 46 Sex: F Admission Date: 10/22/2016 : 1970 Attending Physician: Marcia Kelly M.D. Primary Care Physician: Jaya Monroe Jr., M.D. Consultation Date: 10/28/2016 CONSULTATION REPORT REASON FOR CONSULTATION Followup. DISCUSSION Ms. Anitra Gregorio is a 46-year-old white female, seen in room 229, bed 1 on 10/28/2016 at [facility]. The patient dressed casually, lying comfortably in bed. The patient reports that she is making progress. Affect, bright. Mood, good. No side effects from medication. Denied any suicidal or homicidal ideation. Denied any psychotic symptom. The patient's was at the bedside. Vital signs; temperature 98.3, heart rate 66, respiratory rate 16, blood pressure 100/75, and oxygen saturation 97%. REVIEW OF SYSTEMS Complete review of systems unremarkable. MENTAL STATUS EXAMINATION General appearance, the patient dressed casually. Attention span and concentration, fair. Speech, regular rate and coherent. Oriented in time, place, and person. Mood and affect, sad and dysphoric. Thought process, coherent. Thought content, the patient denied any suicidal or homicidal ideation. Denied any psychotic symptom. Recent and remote memory, fair. Language, intact. Fund of knowledge, fair. Insight and judgment, fair to slightly impaired. DIAGNOSIS Major depressive disorder, recurrent, severe, F33.2. ASSESSMENT/PLAN 1. Supportive psychotherapy and psychoeducation provided to the patient. 2. Educated about benefits and side effects of medication and course and prognosis of illness. 3. Advised to continue with current medication and advised the patient to follow up at [facility] telephone #[phone]. Please feel free to call if any questions, telephone #[phone]. Dictated by... Calvin Bruno M.D. PATI/rneetta TD: 10/29/2016 08:47 Unit #: [id number] #: [id number] Patient: ANITRA GREGORIO JOB #: [id number] CONSULTATION REPORT Page 1 of 1 X Calvin Bruno MD CONSULTATION REPORT
--- NOTE | ~2016-10-22 | XA166 ---
[facility] A Service of [facility] RADIOLOGY TEXT RESULTS PATIENT: DELANEY CHRISTIANSON LOCATION: C2A 229- : [birth year] UNIT #: [id number] AGE: [address]: Marcia Kelly MD SEX: F ORDER DR: [id number] [facility] [address] [facility]. [place], [place] [address] [id number] I MR#: [id number] Acc #: [id number] NAME: DELANEY CHRISTIANSON. : 1970 SEX: F STUDY DATE/TIME: 10/23/2016 12:17 UNIT: C2A ROOM: 229 STUDY DESCRIPTION: XA PICC Line Placement WO Port Attending Physician: Marcia Kelly M.D. Referring Physician: Jaya Monroe Jr., M.D. Ordering Physician: Marcia Kelly M.D. Primary Care Physician: Jaya Monroe Jr., M.D. MEDICAL IMAGING REPORT This report is preliminary unless electronic signature is present EXAM PICC placement with ultrasound and fluoroscopic guidance HISTORY Venous access for medications. PRE-PROCEDURE The procedure was explained to the patient and/or patient medical office representative including risks, benefits, potential complications and potential for alternative forms of treatment. Informed consent was obtained, and prior to initiating the procedure a formal timeout procedure was performed. PROCEDURE Using full standard sterile barrier technique, including caps, gowns, gloves, masks, as well as sterile skin preparation and standard sterile draping, the right arm was prepped and draped in the usual fashion, and real-time sterile ultrasound guidance was used to localize an arm vein and to confirm vessel patency. A hard copy ultrasound image was recorded. After local anesthesia with 1% Xylocaine, the vein was punctured using real-time sterile ultrasound guidance, and an 0.018 guidewire was advanced into the superior vena cava, using fluoroscopic guidance. A 4 Upper Sorbian single-lumen PICC trimmed to 39 cm was then measured and deployed with the tip positioned in the superior vena cava. The position of the line was documented with a radiographic image. The line was secured in place with an adhesive dressing and an antibiotic patch was applied. Sterile ultrasound probe and sterile ultrasound gel was utilized during the procedure. IMPRESSION Successful placement of a 4 Upper Sorbian single lumen PowerPICC trimmed to 39 cm via the right arm under ultrasound and fluoroscopic guidance. The tip of the PICC is in good position in the superior vena cava. [facility] A Service of [facility] / [facility] RADIOLOGY TEXT RESULTS PATIENT: DELANEY CHRISTIANSON LOCATION: [facility] 229-01 : [birth year] UNIT #: [id number] AGE: [address]: Marcia Kelly MD SEX: F ORDER DR: Dictated by... Karlo Millan M.D. THIS IS AN ELECTRONICALLY VERIFIED REPORT Karlo Millan M.D. at 10/24/2016 4:43 PM MATTHEW/lizeth TD: 10/23/2016 20:16 JOB #: [id number] MEDICAL IMAGING REPORT Page 1 of 1 COPY
--- NOTE | ~2016-10-22 | CT71 ---
[facility] A Service of [facility] / [facility] RADIOLOGY TEXT RESULTS PATIENT: ANITRA CHRISTIANSON LOCATION: C2A 229-01 : [birth year] UNIT #: [id number] AGE: [address]: Marcia Kelly MD SEX: F ORDER DR: [id number] [facility] [address] [place], [place] [address] [id number] MR#: [id number] #: [id number] NAME: ANITRA CHRISTIANSON : 1970 SEX: F STUDY DATE/TIME: 10/22/2016 19:04 UNIT: C2A ROOM: 229 STUDY DESCRIPTION: CT Head Wo Contrast Attending Physician: Marcia Kelly M.D. Referring Physician: Jaya Monroe Jr., M.D. Ordering Physician: Anitra Aguilar M.D. Primary Care Physician: Jaya Monroe Jr., M.D. MEDICAL IMAGING REPORT This report is preliminary unless electronic signature is present EXAM CT head, 10/22/2016. HISTORY Altered mental status. Confusion. Hypotensive, weakness x1 week, CVA with left side paralysis, diabetes, respiratory, , tubal ligation. TECHNIQUE CT head performed skull base through vertex without intravenous contrast. This CT exam was performed with one or more of the following radiation dose reduction techniques: automatic exposure control, adjustment of mA and/or kV according to patient size, and iterative reconstruction. COMPARISON 09/24/2016. FINDINGS Brainstem shows no acute abnormality. The cerebellum shows no acute abnormality. The right cerebral hemisphere shows stable areas of encephalomalacic change in the posteromedial right temporooccipital junction region and occipital lobe, posterior right temporoparietal junction region extending into the parietal lobe, anterolateral right frontal lobe, and superomedial right frontal lobe. All of these changes are stable and felt to reflect multifocal prior vascular insults. The left cerebral hemisphere shows no acute abnormality. There is no evidence of acute hemorrhage or ischemia. The midline structures are nondisplaced. Ventricles, cisterns and sulci outside the areas of encephalomalacic change show mild generalized enlargement consistent with mild generalized atrophy. Stable. Cavernous carotid arterial calcifications. Intraorbital soft tissues show no acute abnormality. The visualized paranasal sinuses and mastoid air cells are clear. [facility]. [facility] A Service of [facility] / [facility] RADIOLOGY TEXT RESULTS PATIENT: ANITRA CHRISTIANSON LOCATION: A 229-01 : 66 UNIT #: [id number] AGE: [address]: Marcia Kelly MD SEX: F ORDER DR: 1. No acute abnormality is seen in the brain. No change in appearance compared to 09/24/2016. 2. Areas of chronic encephalomalacic change, multifocal, in the right cerebral hemisphere involving temporal, occipital, frontal and parietal lobes. No change from prior study and felt to reflect multifocal prior vascular insult. 3. Underlying mild generalized atrophy. 4. Cavernous carotid arterial calcifications. Dictated by... Saurabh Lorenzo M.D. THIS IS AN ELECTRONICALLY VERIFIED REPORT Saurabh Lorenzo M.D. at 10/24/2016 7:36 AM Tammy TD: 10/23/2016 08:37 JOB #: [id number] MEDICAL IMAGING REPORT Page 1 of 1 COPY
[~2016-10-22 17:32] MED LIST changes: +(NONE)1 CA1 PO; +ACID REDUCER20 MG PO; +ALTOPREV40 MG PO; +ATIVAN PO; +COUMADIN PO; +DESYREL50 MG PO; +EFFEXOR PO; +FOLIC ACID1 MG PO; +LEVAQUIN PO; +LISINOPRIL PO; +LOPRESSOR PO; +LORAZEPAM1 MG PO; +NEURONTIN100 MG PO; +PATIENT'S PHARMACY; +PROTONIX PO; +REMERON PO; +RISPERIDONE PO; +SENNA8.6 M1 PO; +SPECTAZOLE15 GM TOP; +TYLENOL325 M1 PO; +ULTRAM PO; +VIMPAT100 MG PO; +VITAMIN D250000 UNIT PO; +ZOFRAN PO; +ZOLOFT50 MG PO
[2016-10-22 18:39] LABS: BASOPHIL% 0.4 % (0-2.5); EOSINOPHIL% 0.1 % (0.0-7.0); HEMOGLOBIN 12.1 gm/dL (12.0-16.0); LYMPHOCYTE# 2.9 X10e3 (1.0-3.5); MEAN CELL VOLUME 88.7 FL (83-96); MEAN CORPUSCULAR HEMOGLOBIN 28.2 PG (28-34); MEAN CORPUSCULAR HGB CONC 31.8 g/dL (30-36); MEAN PLATELET VOLUME 8.9 FL (6.5-11.5); MONOCYTE# 0.5 X10e3 (0-1.0); MONOCYTE% 4.8 % (3.0-12.0); NEUTROPHIL# 6.9 X10e3 (1.5-7.1); NEUTROPHIL% 66.7 % (40-75); PLATELET COUNT 374 X10e3 (140-420); RED BLOOD COUNT 4.28 X10e (3.90-5.30); WHITE BLOOD COUNT 10.3 X10e3 (4.0-10.5)
[2016-10-22 18:51] LABS: POC - CKMB <1.0 ng/mL (0.0-7.9); POC - TROPONIN <0.05 ng/mL (<=0.05)
[2016-10-22 18:54] LABS: DIFF IND NO
[2016-10-22 18:58] LABS: ALBUMIN SERUM 3.6 g/dL (3.5-5.0); BILIRUBIN, DIRECT 0.1 mg/dL (0.0-0.2); BILIRUBIN,TOTAL 0.1 mg/dL (0.2-2.0); BUN/CREATININE RATIO 18.75; CALCIUM SERUM 10.1 mg/dL (8.4-10.2); CREATININE SERUM 1.6 mg/dL (0.6-1.4); GLOM FILT RATE Estimated 37.7 mL/min (>60); POTASSIUM 4.8 mmol/L (3.5-5.1); PROTEIN TOTAL SERUM 7.7 g/dL (6.0-8.3)
[2016-10-22 19:53] LABS: URINE SOURCE CLEAN CATCH
[2016-10-22 20:06] LABS: URINE APPEARANCE CLOUDY; URINE BILIRUBIN NEG (NEG); URINE BLOOD TRACE (NEG); URINE COLOR YELLOW; URINE GLUCOSE NEG (NEG); URINE KETONE NEG (NEG); URINE LEUKOCYTE ESTERASE 3+ (NEG); URINE NITRATE NEG (NEG); URINE PROTEIN TRACE (NEG); URINE SPECIFIC GRAVITY 1.023 (1.003-1.035)
[2016-10-22 20:09] LABS: CULTURE INDICATED? YES; U HYALINE CASTS AUWI 0-2 /[LPF]; URINE BACTERIA AUWI 2+ (NEGATIVE); URINE SQUAMOUS EPITHELIAL CELL NONE SEEN /[HPF]; UWBCS1 AUWI INNUM (0-5)
[2016-10-22] MEDS ORDERED: BACTRIM DS TAB1 EACH PO (20:37)
[2016-10-23 07:01] LABS: INR 3.6; PARTIAL THROMBOPLASTIN TIME 48.5 SECONDS (23.5-31.3); PROTHROMBIN TIME (PATIENT) 39.1 SECONDS (10.0-11.7)
[2016-10-23] MEDS ORDERED: NILSTAT PO (07:18)
[2016-10-23] MEDS ORDERED: CARAFATE1 GM PO (07:19)
[2016-10-24 06:03] LABS: HEMATOCRIT 30.2 % (35.0-45.0); MEAN CELL VOLUME 88.3 FL (83-96); MEAN CORPUSCULAR HGB CONC 32.8 g/dL (30-36); MEAN PLATELET VOLUME 8.2 FL (6.5-11.5); RED BLOOD COUNT 3.42 X10e (3.90-5.30); RED CELL DISTRIBUTION WIDTH 14.9 % (11.0-15.5)
[2016-10-24 06:09] LABS: HEMOGLOBIN 9.9 gm/dL (12.0-16.0)
[2016-10-24 06:25] LABS: INR 3.1; PROTHROMBIN TIME (PATIENT) 33.6 SECONDS (10.0-11.7)
[2016-10-24 06:50] LABS: BUN/CREATININE RATIO 19.09; CALCIUM SERUM 8.9 mg/dL (8.4-10.2); CREATININE SERUM 1.1 mg/dL (0.6-1.4); GLOM FILT RATE Estimated 59.3 mL/min (>60); POTASSIUM 4.1 mmol/L (3.5-5.1)
[2016-10-25 07:00] LABS: BUN/CREATININE RATIO 14.44; CALCIUM SERUM 8.5 mg/dL (8.4-10.2); CREATININE SERUM 0.9 mg/dL (0.6-1.4); GLOM FILT RATE Estimated 75.7 mL/min (>60); POTASSIUM 3.4 mmol/L (3.5-5.1)
[2016-10-25 08:33] LABS: INR 1.6; PROTHROMBIN TIME (PATIENT) 17.5 SECONDS (10.0-11.7)
[2016-10-26 00:51] LABS: HEMOGLOBIN 9.3 gm/dL (12.0-16.0); MEAN CELL VOLUME 88.7 FL (83-96); MEAN CORPUSCULAR HEMOGLOBIN 28.6 PG (28-34); MEAN CORPUSCULAR HGB CONC 32.2 g/dL (30-36); MEAN PLATELET VOLUME 7.9 FL (6.5-11.5); RED BLOOD COUNT 3.27 X10e (3.90-5.30); RED CELL DISTRIBUTION WIDTH 14.4 % (11.0-15.5); WHITE BLOOD COUNT 7.8 X10e3 (4.0-10.5)
[2016-10-26 01:06] LABS: INR 1.4; PROTHROMBIN TIME (PATIENT) 14.7 SECONDS (10.0-11.7)
[2016-10-26 01:09] LABS: CALCIUM SERUM 8.9 mg/dL (8.4-10.2); GLOM FILT RATE Estimated 66.6 mL/min (>60); MAGNESIUM 1.7 mg/dL (1.6-3.0); POTASSIUM 4.4 mmol/L (3.5-5.1)
[2016-10-27 05:18] LABS: HEMATOCRIT 28.5 % (35.0-45.0); HEMOGLOBIN 9.3 gm/dL (12.0-16.0); MEAN CELL VOLUME 88.6 FL (83-96); MEAN CORPUSCULAR HEMOGLOBIN 28.7 PG (28-34); MEAN CORPUSCULAR HGB CONC 32.4 g/dL (30-36); MEAN PLATELET VOLUME 8.1 FL (6.5-11.5); RED BLOOD COUNT 3.22 X10e (3.90-5.30); RED CELL DISTRIBUTION WIDTH 14.8 % (11.0-15.5)
[2016-10-27 05:49] LABS: INR 1.5; PROTHROMBIN TIME (PATIENT) 16.1 SECONDS (10.0-11.7)
[2016-10-27 05:50] LABS: BUN/CREATININE RATIO 11.11; CALCIUM SERUM 8.8 mg/dL (8.4-10.2); CREATININE SERUM 0.9 mg/dL (0.6-1.4); GLOM FILT RATE Estimated 75.7 mL/min (>60); POTASSIUM 3.9 mmol/L (3.5-5.1)
[2016-10-28] MEDS ORDERED: BUSPAR15 M1 PO (05:35)
[2016-10-28 07:04] LABS: INR 1.5; PROTHROMBIN TIME (PATIENT) 16.1 SECONDS (10.0-11.7)
== END 2016-10-28 13:57 | DRG 315 ==
LOC: CED 17:32 → C2A 20:55 → CEDOF 20:55 → C2A 22:25
PROVIDERS: Emergency Medicine; Internal Medicine; Physician Assistant Medical
PROC: 02HV33Z Insertion of Infusion Device into Superior Vena Cava, Percutaneous Approach (ICD-10-PCS; principal; 2016-10-23)
PROC: B518YZA Fluoroscopy of Superior Vena Cava using Other Contrast, Guidance (ICD-10-PCS; 2016-10-23)
PROC: B548ZZA Ultrasonography of Superior Vena Cava, Guidance (ICD-10-PCS; 2016-10-23)
DX: I95.9 Hypotension, unspecified (principal); N17.9 Acute kidney failure, unspecified; F33.2 Major depressive disorder, recurrent severe without psychotic features; I69.354 Hemiplegia and hemiparesis following cerebral infarction affecting left non-dominant side; N39.0 Urinary tract infection, site not specified; B95.2 Enterococcus as the cause of diseases classified elsewhere; E11.9 Type 2 diabetes mellitus without complications; E86.0 Dehydration; D64.9 Anemia, unspecified; G40.909 Epilepsy, unspecified, not intractable, without status epilepticus; Z87.891 Personal history of nicotine dependence; Z98.51 Tubal ligation status; Z79.01 Long term (current) use of anticoagulants; F40.01 Agoraphobia with panic disorder; Z16.21 Resistance to vancomycin
CPT/HCPCS: 36415; 70450; 71010; 76937; 77001; 80048; 80076; 81003; 82553; 82947; 83605; 83735; 84484; 85025; 85027; 85610; 85730; 87040; 87086; 87186; 93005; 97162; 97167; 97530; 99285; C1751; G8978-GP; G8979-GP; G8980-GP; G8987-GO; G8988-GO; G8989-GO; J1642; J1650; J1815; J1956; J2020